=== PATIENT | female | born 1940 | race Caucasian/White ===

== ENCOUNTER 2016-10-14 18:33 | Emergency (ER) | payer OTHER ==
[~2016-10-14] VITALS: Ht 158.8 cm; Wt 58.5 kg
[2016-10-14 18:38] VITALS: BP 147/89
--- NOTE | 2016-10-14 19:47 | ULTRASOUND REPORT ---
EXAMINATION: US TRIPLEX LOWER EXTREMITY, RIGHT CLINICAL INFORMATION: Right lower extremity edema and pain. COMPARISON: None TECHNIQUE: Color-flow triplex imaging with spectral analysis and compression Doppler were performed on the right lower extremity. FINDINGS: Respiratory variation, normal compression and augmented flow are noted throughout the lower extremity. The visualized common femoral vein, superficial femoral vein, profunda femoral vein, popliteal vein and midcalf peroneal and posterior tibial venous segments show no evidence of deep venous thrombosis. There is a 5.7 x 0.6 x 1.7 cm Blum's cyst. IMPRESSION: Normal triplex scan without evidence of deep venous thrombosis involving the right lower extremity.
--- NOTE | 2016-10-14 20:18 | ED UPPER/LOWER EXTREMITY COMPL ---
History of Present Illness General Chief Complaint: Lower Extremity Injury Stated Complaint: RT LOWER EXT SWELLING Source: patient Exam Limitations: no limitations Vital Signs & Intake/Output Vital Signs & Intake/Output Vital Signs Date Time Temp Pulse Resp B/P Pulse O2 O2 Flow FiO2 Ox Delivery Rate 10/14 1838 97.6 96 18 147/89 96 Room Air Allergies Coded Allergies: No Known Allergies (10/14/16) Triage Note: PT SENT BY DR CHADWICK DUE TO R CALF PAIN FOR 3 DAYS. PT NOTED WITH SWELLING AND STATES THAT HER PAIN HAS BEEN INCREASING. DID NOT GO TO EARLIER DUE TO THE HOLIDAY. Triage Nurses Notes Reviewed? yes Onset: Abrupt Duration: day(s): (5), constant, continues in ED Timing: recent history Severity: moderate, severe Pain/Injury Location: Right: Leg. No Modifying Factors: none HPI: 76-year-old female comes into emergency room for further evaluation of right leg swelling. Symptoms are been going on for the past 5 days. Denies any chest pain or shortness of breath. Denies any trauma to the leg. Denies any falls. Denies any prior history of this. Denies any rashes. Some mild pain to the leg. Denies any other associated symptoms. (DORINDA SHAHID) Past History Travel History Traveled to [place] past 21 day No Medical History Any Pertinent Medical History? see below for history Neurological: NONE EENT: NONE Cardiovascular: NONE Respiratory: NONE Gastrointestinal: NONE Hepatic: NONE Renal: NONE Musculoskeletal: NONE Psychiatric: anxiety Endocrine: hypothyroidism Blood Disorders: NONE Cancer(s): NONE AIR AND WATER TESTER/Reproductive: NONE Surgical History Surgical History: non-contributory Psychosocial History What is your primary language Belarusian Tobacco Use: Never used ETOH Use: denies use Illicit Drug Use: denies illicit drug use Family History Hx Contributory? No (DORINDA SHAHID) Review of Systems Review of Systems Constitutional: Reports: no symptoms. EENTM: Reports: no symptoms. Respiratory: Reports: no symptoms. Cardiovascular: Reports: no symptoms. Gastrointestinal/Abdominal: Reports: no symptoms. Genitourinary: Reports: no symptoms. Musculoskeletal: Reports: see HPI. Skin: Reports: see HPI. Neurological/Psychological: Reports: no symptoms. Hematologic/Endocrine: Reports: no symptoms. Immunological: Reports: no symptoms. All Other Systems: Reviewed and Negative (DORINDA SHAHID) Physical Exam Physical Exam General Appearance: well developed/nourished, mild distress Head: atraumatic Eyes: Bilateral: normal appearance, EOMI. Ears, Nose, Throat: normal ENT inspection, hearing grossly normal Neck: normal inspection Cardiovascular/Respiratory: no respiratory distress Back: normal inspection Leg Right: swelling, tenderness, soft tissue tenderness, limited range of motion , dorsalis pedis 2+, no pitting edema Neurologic/Tendon: normal sensation, normal motor functions, normal tendon functions, responds to pain, no evidence tendon injury, no pulse deficit Skin: intact, normal color, warm/dry Lymphatic: no anterior cervical alysha (DORINDA SHAHID) Progress Differential Diagnosis: arterial insufficiency, cellulitis, CHF, compartment syndrome, contusion, dislocation, DVT, fracture, septic arthritis, tendon injury , Blum's cyst Plan of Care: 10/14/2016 9:08:38 PM Patient clinically looks well. No apparent distress. Patient has a Blum's cyst. Patient referred to orthopedic doctor. Patient to follow-up with her primary care doctor. Understands and agrees with plan of care. Diagnostic Imaging: Viewed by Me: Ultrasound. Discussed w/RAD: Ultrasound. Radiology Impression: SERVICE DATE: 10/14/16 EXAM TYPE: US - US- UNILATERAL VENOUS DOPPLER EXAMINATION: US TRIPLEX LOWER EXTREMITY, RIGHT CLINICAL INFORMATION: Right lower extremity edema and pain. COMPARISON: None TECHNIQUE: Color-flow triplex imaging with spectral analysis and compression Doppler were performed on the right lower extremity. FINDINGS: Respiratory variation, normal compression and augmented flow are noted throughout the lower extremity. The visualized common femoral vein, superficial femoral vein, profunda femoral vein, popliteal vein and midcalf peroneal and posterior tibial venous segments show no evidence of deep venous thrombosis. There is a 5.7 x 0.6 x 1.7 cm Blum's cyst. IMPRESSION: Normal triplex scan without evidence of deep venous thrombosis involving the right lower extremity. DICTATED BY: EFRAIN FABIAN MD DATE/TIME DICTATED:10/14/161940 ACID PATROLLER:ESTRELLA DATE/TIME TRANSCRIBED:10/14/161940 (DORINDA SHAHID) Departure Departure Disposition: HOME OR SELF CARE Condition: Stable Clinical Impression Primary Impression: Bakers cyst Referrals: BELLA MELTON,JAN Santana (PCP/Family) Additional Instructions: Follow-up with orthopedic doctor provided. Elevate your leg. Rest. Return if any other concerns worsening symptoms. Take Tylenol for pain. Please go over all results of today's visit with your primary care doctor. Contact your primary care doctor to let them know you were here in the emergency room. There may be nonspecific findings which may not be related to your visit today here in the emergency room but may require further evaluation and chronic monitoring by your primary care doctor. If you had a laceration today the chance of foreign body always remains. You should follow-up with your primary care doctor for recheck in 3-5 days for a wound check. If you had an x-ray done there is a chance that a fracture could have been missed on initial read and you should follow-up with your primary care doctor for repeat x-rays if symptoms persist. If your blood pressure was elevated here in the emergency room please have rechecked by her primary care doctor within the next 48 hours by your primary care doctor. If you were prescribed a narcotic here in the emergency room or any type of controlled substances you're not allowed to drive while taking this medication or operate any type of heavy machinery. Narcotics can make you feel lightheaded dizziness nausea and can cause constipation. You may need to tile picker a stool softener. Thank you for choosing [facility] emergency room. Please return to the emergency room immediately if you have any other concerns worsening of symptoms. Departure Forms: Customer Survey General Discharge Information (DORINDA SHAHID) PA/VIBRATING SCREEN OPERATOR Co-Sign Statement Statement: ED Attending supervision documentation- [] I saw and evaluated the patient. I have also reviewed all the pertinent lab results and diagnostic results. I agree with the findings and the plan of care as documented in the PA's/VIBRATING SCREEN OPERATOR's documentation. [X] I have reviewed the ED Record and agree with the PA's/VIBRATING SCREEN OPERATOR's documentation. [] Additions or exceptions (if any) to the PAs/VIBRATING SCREEN OPERATOR's note and plan are summarized below: [] (NAMITA MELTON,KENYON Dwyer)
== END 2016-10-14 20:32 ==
LOC: ERH 18:33
DX: M71.21 Synovial cyst of popliteal space [Baker], right knee (principal)